=== PATIENT | male | born 1945 | race American Indian/Alaskan Native ===

== ENCOUNTER 2019-11-16 09:08 | Day surgery (SDC) | payer MEDICARE, OTHER ==
[~2019-11-16] VITALS: Ht 182.9 cm; Wt 85.0 kg
[~2019-11-16 09:08] MED LIST: Adult Low Dose81 MG PO; CEPH500 PO; CHOL10002; FISH1000 PO; HYDR1TAB94 PO; METF500 PO; MULVITMIND PO; PSYL5.85P PO; Stool Softener100 MG PO
--- NOTE | 2019-11-16 11:10 | NUR ---
PT TO RECOVERY ROOM POST PROCEDURE, ARRANGEMENTS BEING MADE TO TRANSFER TO [facility] FOR OPEN HEART SURGERY. PT AWAKE AND CONVERSING APPROPRIATELY, DENIES CHEST PAIN POST PROCEDURE. MONITOR SB 50'S WITH IVCD, B/P 137/68, AFEBRILE, SPO2 97-98% RA. R RADIAL SITE NO SWELLING/HEMATOMA, TR BAND IN PLACE. PT'S AT BEDSIDE ATTENTIVE.
--- NOTE | 2019-11-16 13:07 | NUR ---
COVID SWAB COLLECTED PER ORDERS. 3CC AIR LET OUT OF TR BAND. NO BLEEDING OR SWELLING NOTED
--- NOTE | 2019-11-16 13:18 | NUR ---
PT AMB TO BATHROOM WITHOUT ISSUE, GAIT STEADY; SITE UNCHANGED WITH ACTIVITY.
--- NOTE | 2019-11-16 13:50 | NUR ---
PT COVID TEST RECEIVED-RESULTS NEGATIVE-FAXED TO [facility]. REPORT CALLED TO HYUN AGUAYO AT [facility]; ALL QUESTIONS ANSWERED. [facility] CALLED FOR TRANSFER.
--- NOTE | 2019-11-16 14:16 | NUR ---
PT TRANSFERRED TO [facility] VIA [facility], CONDITION STABLE.
== END 2019-11-16 14:16 | disposition home or self-care (01) ==
LOC: MHTC 09:08
PROC: B201YZZ Plain Radiography of Multiple Coronary Arteries using Other Contrast (ICD-10-PCS; principal; 2019-11-16)
PROC: 4A023N7 Measurement of Cardiac Sampling and Pressure, Left Heart, Percutaneous Approach (ICD-10-PCS; principal; 2019-11-16)
DX: I25.10 Atherosclerotic heart disease of native coronary artery without angina pectoris (principal); I34.0 Nonrheumatic mitral (valve) insufficiency; E11.9 Type 2 diabetes mellitus without complications; Z79.84 Long term (current) use of oral hypoglycemic drugs; E78.5 Hyperlipidemia, unspecified; Z20.828 Contact with and (suspected) exposure to other viral communicable diseases; Z79.82 Long term (current) use of aspirin
CPT/HCPCS: 93458; 99152; 99153; C1769; C1894; J1644; J2250; J3010; J7030; J7050; Q9967; U0002

== ENCOUNTER 2021-07-27 11:43 | Day surgery (SDC) | payer MEDICARE, OTHER ==
[~2021-07-27] VITALS: Ht 177.8 cm; Wt 88.4 kg
[~2021-07-27 11:43] MED LIST changes: +ATOR40TA PO; +Aspir 8181 MG PO; +METOPROLOL SUCC25 MG PO
--- NOTE | 2021-07-27 11:58 | NUR ---
07/27/21 1158 Lainey Byrd CALL LIGHT WITHIN REACH. TETRACAINE AT 1155 PLEDGETT AT 1157 IN LEFT EYE
== END 2021-07-27 13:00 | disposition home or self-care (01) ==
LOC: ORSCSDS 11:43
PROVIDERS: Ophthalmology
PROC: 08RK3JZ Replacement of Left Lens with Synthetic Substitute, Percutaneous Approach (ICD-10-PCS; principal; 2021-07-27 13:00)
DX: H25.13 Age-related nuclear cataract, bilateral (principal); E11.9 Type 2 diabetes mellitus without complications; I25.10 Atherosclerotic heart disease of native coronary artery without angina pectoris; I10 Essential (primary) hypertension; Z79.82 Long term (current) use of aspirin; Z79.84 Long term (current) use of oral hypoglycemic drugs; Z79.899 Other long term (current) drug therapy
CPT/HCPCS: 82947; J2001; J2250; J3010; J3301; J7040; V2632

== ENCOUNTER 2021-08-17 07:44 | Day surgery (SDC) | payer MEDICARE, OTHER ==
[~2021-08-17] VITALS: Ht 177.8 cm; Wt 89.4 kg
--- NOTE | 2021-08-17 08:21 | NUR ---
08/17/21 0821 Ashtyn Beltran AT 0815 ABDULLAHIET AT 0816
== END 2021-08-17 09:55 | disposition home or self-care (01) ==
LOC: ORSCSDS 07:44
PROVIDERS: Ophthalmology
PROC: 08RJ3JZ Replacement of Right Lens with Synthetic Substitute, Percutaneous Approach (ICD-10-PCS; principal; 2021-08-17 09:00)
DX: H25.11 Age-related nuclear cataract, right eye (principal); H52.201 Unspecified astigmatism, right eye; E11.9 Type 2 diabetes mellitus without complications; I10 Essential (primary) hypertension; I25.10 Atherosclerotic heart disease of native coronary artery without angina pectoris; Z79.82 Long term (current) use of aspirin; Z79.84 Long term (current) use of oral hypoglycemic drugs; Z79.899 Other long term (current) drug therapy
CPT/HCPCS: 82947; J2001; J2250; J3010; J3301; J7040; V2632

== ENCOUNTER 2021-09-20 08:59 | Observation (INO) | payer MEDICARE, OTHER ==
[~2021-09-20] VITALS: Ht 180.3 cm; Wt 84.5 kg
[~2021-09-20 08:59] MED LIST changes: +THERA-D2000 UNIT PO
[2021-09-20 09:58] LABS: BASOPHILS ABSOLUTE AUTO 0.02 K/mm3 (0.00-0.23); BASOPHILS PERCENT AUTO 1 % (0-2); EOSINOPHILS ABSOLUTE AUTO 0.09 K/mm3 (0.00-0.68); EOSINOPHILS PERCENT AUTO 2 % (0-6); Hematocrit 44.8 % (37.0-53.0); Hemoglobin 15.1 g/dL (13.5-17.5); IMMATURE GRAN ABSOLUTE AUTO 0.01 K/mm3 (0.00-0.10); IMMATURE GRAN PERCENT AUTO 0 % (0-1); LYMPHOCYTES ABSOLUTE AUTO 1.23 K/mm3 (0.84-5.20); LYMPHOCYTES PERCENT AUTO 30 % (21-46); MONOCYTES ABSOLUTE AUTO 0.48 K/mm3 (0.16-1.47); MONOCYTES PERCENT AUTO 12 % (4-13); Mean Corpuscular HGB 31.2 pg (26.0-34.0); Mean Corpuscular HGB Conc 33.7 g/dL (31.5-36.5); Mean Corpuscular Volume 93 fL (80-100); Mean Platelet Volume 11.2 fL (9.1-12.4); NEUTROPHILS ABSOLUTE AUTO 2.33 K/mm3 (1.96-9.15); NEUTROPHILS PERCENT AUTO 56 % (41-73); Platelet Count 141 K/mm3 (150-400); RDW Coefficient Variation 12.5 % (11.7-14.2); RDW Standard Deviation 42.5 fL (35.1-46.3); Red Blood Cell Count 4.84 M/mm3 (4.30-5.90); White Blood Cell Count 4.16 K/mm3 (4.00-11.30)
[2021-09-20] MEDS ORDERED: MULVITA PO (10:01)
[2021-09-20 10:17] LABS: Albumin/Globulin Ratio 1.2 (0.8-1.8); Bun/Creatinine Ratio 17.4 (12.0-20.0); Calcium, Blood 9.3 mg/dL (8.5-10.1); Creatinine, Blood 0.92 mg/dL (0.60-1.20); Globulin, Blood 3.4 g/dL (2.2-4.0); Potassium, Blood 4.1 mmol/L (3.5-5.5); Total Protein, Blood 7.4 g/dL (6.4-8.2)
--- NOTE | 2021-09-20 18:51 | NUR ---
PATIENT IS ALERT AND ORIENTED AND COOPERATIVE WITH CARE. CALLS APPROPRIATELY. PSYCHOLOGIST ENGINEERING CALLED AND NOTIFIED RN OF 3.26 SEC PAUSE, TELE STRIP UPLOADED AND DR. CANO NOTIFIED. BP AND HR STABLE AND PATIENT ASYMPTOMATIC. WILL CONTINUE TO MONITOR
[2021-09-21 04:50] LABS: BASOPHILS ABSOLUTE AUTO 0.03 K/mm3 (0.00-0.23); BASOPHILS PERCENT AUTO 1 % (0-2); EOSINOPHILS ABSOLUTE AUTO 0.08 K/mm3 (0.00-0.68); EOSINOPHILS PERCENT AUTO 2 % (0-6); Hemoglobin 14.1 g/dL (13.5-17.5); IMMATURE GRAN ABSOLUTE AUTO 0.01 K/mm3 (0.00-0.10); IMMATURE GRAN PERCENT AUTO 0 % (0-1); LYMPHOCYTES ABSOLUTE AUTO 1.46 K/mm3 (0.84-5.20); LYMPHOCYTES PERCENT AUTO 38 % (21-46); MONOCYTES ABSOLUTE AUTO 0.45 K/mm3 (0.16-1.47); MONOCYTES PERCENT AUTO 12 % (4-13); Mean Corpuscular HGB 31.4 pg (26.0-34.0); Mean Corpuscular HGB Conc 33.6 g/dL (31.5-36.5); Mean Corpuscular Volume 94 fL (80-100); Mean Platelet Volume 11.2 fL (9.1-12.4); NEUTROPHILS ABSOLUTE AUTO 1.86 K/mm3 (1.96-9.15); NEUTROPHILS PERCENT AUTO 48 % (41-73); Platelet Count 130 K/mm3 (150-400); RDW Coefficient Variation 12.4 % (11.7-14.2); RDW Standard Deviation 42.7 fL (35.1-46.3); Red Blood Cell Count 4.49 M/mm3 (4.30-5.90); White Blood Cell Count 3.89 K/mm3 (4.00-11.30)
--- NOTE | 2021-09-21 05:09 | NUR ---
PT A/0X4, INDEPENDENT IN ROOM AND JOHN TO MAKE NEEDS KNOWN. NO NEW CHANGES OVERNIGHT. STILL REPORTING NUMBNESS TO LUE HOWEVER BETTER THAN WHEN HE FIRST CAME TO HOSPITAL. PT HOPEFUL ON BEING D/C TODAY.
[2021-09-21 05:11] LABS: Albumin, Blood 3.6 g/dL (3.4-5.0); Albumin/Globulin Ratio 1.1 (0.8-1.8); Bilirubin, Total 1.3 mg/dL (0.1-1.0); Bun/Creatinine Ratio 20.2 (12.0-20.0); Calcium, Blood 9.1 mg/dL (8.5-10.1); Creatinine, Blood 0.89 mg/dL (0.60-1.20); Globulin, Blood 3.2 g/dL (2.2-4.0); Potassium, Blood 4.2 mmol/L (3.5-5.5); Total Protein, Blood 6.8 g/dL (6.4-8.2)
[2021-09-21] MEDS ORDERED: CLOP75 PO (11:58)
--- NOTE | 2021-09-21 12:34 | NUR ---
DISCHARGE SUMMARY PATIENT DISCHARGED HOME. DISCHARGE PAPERWORK REVIWED WITH PATIENT AND HIS . ALL QUESTIONS ANSWERED. NEW PRESCRIPTIONS FAXED TO PATIENTS PREFERRED PHARMACY. IV AND TELE D/C'D. PATIENT GIVEN LOADING DOSE OF PLAVIX PRIOR TO D/C. ALL BELONGINGS PACKED AND TAKEN WITH PATIENT. PATIENT AMBULATED TO CAR WITH .
== END 2021-09-21 12:21 | disposition home or self-care (01) ==
LOC: ER 08:59 → MEDS 11:27
PROVIDERS: Physician Assistant; ADMIT Family Medicine
DX: G45.9 Transient cerebral ischemic attack, unspecified (principal); E11.9 Type 2 diabetes mellitus without complications; I10 Essential (primary) hypertension; I25.10 Atherosclerotic heart disease of native coronary artery without angina pectoris; Z95.1 Presence of aortocoronary bypass graft; Z79.84 Long term (current) use of oral hypoglycemic drugs; Z79.82 Long term (current) use of aspirin; Z79.899 Other long term (current) drug therapy
CPT/HCPCS: 36415; 70450; 80053; 82947; 85025; 92610; 93005; 93010; 93306; 93880; 96372; 97161; 97530; 99285-25; A9270; G0378; J1650

== ENCOUNTER 2021-11-03 06:20 | Emergency (ER) | payer MEDICARE, OTHER ==
[~2021-11-03] VITALS: Ht 180.3 cm; Wt 86.2 kg
[~2021-11-03 06:20] MED LIST changes: +CLOP75 PO; +MULVITA PO
[2021-11-03 07:44] LABS: BASOPHILS ABSOLUTE AUTO 0.02 K/mm3 (0.00-0.23); BASOPHILS PERCENT AUTO 1 % (0-2); EOSINOPHILS ABSOLUTE AUTO 0.13 K/mm3 (0.00-0.68); EOSINOPHILS PERCENT AUTO 4 % (0-6); Hematocrit 39.9 % (37.0-53.0); Hemoglobin 13.4 g/dL (13.5-17.5); IMMATURE GRAN ABSOLUTE AUTO 0.01 K/mm3 (0.00-0.10); IMMATURE GRAN PERCENT AUTO 0 % (0-1); LYMPHOCYTES ABSOLUTE AUTO 1.02 K/mm3 (0.84-5.20); LYMPHOCYTES PERCENT AUTO 32 % (21-46); MONOCYTES ABSOLUTE AUTO 0.37 K/mm3 (0.16-1.47); MONOCYTES PERCENT AUTO 12 % (4-13); Mean Corpuscular HGB 31.8 pg (26.0-34.0); Mean Corpuscular HGB Conc 33.6 g/dL (31.5-36.5); Mean Corpuscular Volume 95 fL (80-100); Mean Platelet Volume 11.2 fL (9.1-12.4); NEUTROPHILS ABSOLUTE AUTO 1.68 K/mm3 (1.96-9.15); NEUTROPHILS PERCENT AUTO 52 % (41-73); Platelet Count 115 K/mm3 (150-400); RDW Standard Deviation 45.1 fL (35.1-46.3); Red Blood Cell Count 4.21 M/mm3 (4.30-5.90); White Blood Cell Count 3.23 K/mm3 (4.00-11.30)
[2021-11-03 08:00] LABS: Albumin, Blood 3.5 g/dL (3.4-5.0); Albumin/Globulin Ratio 1.2 (0.8-1.8); Bilirubin, Total 0.6 mg/dL (0.1-1.0); Bun/Creatinine Ratio 25.2 (12.0-20.0); Calcium, Blood 8.2 mg/dL (8.5-10.1); Creatinine, Blood 0.87 mg/dL (0.60-1.20); Globulin, Blood 2.9 g/dL (2.2-4.0); Potassium, Blood 4.1 mmol/L (3.5-5.5); Total Protein, Blood 6.4 g/dL (6.4-8.2)
[2021-11-03] MEDS ORDERED: CLOP75 PO (09:18)
== END 2021-11-03 10:27 | disposition home or self-care (01) ==
LOC: ER 06:20
PROVIDERS: Emergency Medicine
DX: G45.9 Transient cerebral ischemic attack, unspecified (principal); E11.9 Type 2 diabetes mellitus without complications; Z95.1 Presence of aortocoronary bypass graft; Z79.84 Long term (current) use of oral hypoglycemic drugs; Z79.82 Long term (current) use of aspirin
CPT/HCPCS: 36415; 70450; 70496; 70498; 80053; 85025; 93005; 93010; Q9967

== ENCOUNTER → 2023-05-01 | Outpatient (CLI) | payer MEDICARE, OTHER | LOC: LAB 12:27 → LAB SHORT 12:27 | DX: D04.22 Carcinoma in situ of skin of left ear and external auricular canal (principal) | CPT/HCPCS: 88305 ==